=== PATIENT | female | born 1985 | race Caucasian/White ===

== ENCOUNTER 2018-11-29 11:43 | Emergency (ER) | payer OTHER ==
[~2018-11-29] VITALS: Ht 162.6 cm; Wt 84.4 kg
[2018-11-29] MEDS ORDERED: SYNTHROID300 MCG PO (12:19)
[2018-11-29] MEDS ORDERED: OBSTETRIX DHA1 EACH PO (12:19)
== END 2018-11-29 15:58 | disposition home or self-care (01) ==
LOC: ER 11:43
DX: O23.41 Unspecified infection of urinary tract in pregnancy, first trimester (principal); Z34.01 Encounter for supervision of normal first pregnancy, first trimester

== ENCOUNTER → 2018-12-17 | Outpatient (CLI) | payer OTHER ==
[~2018-12-17] MED LIST: OBSTETRIX DHA1 EACH PO; SYNTHROID300 MCG PO
== END | disposition home or self-care (01) ==
LOC: PRENATAL 13:21
DX: O99.89 Other specified diseases and conditions complicating pregnancy, childbirth and the puerperium (principal); O09.291 Supervision of pregnancy with other poor reproductive or obstetric history, first trimester; O34.211 Maternal care for low transverse scar from previous cesarean delivery

== ENCOUNTER → 2019-02-06 | Outpatient (CLI) | payer OTHER | END | disposition home or self-care (01) | LOC: PRENATAL 08:00 | DX: O24.312 Unspecified pre-existing diabetes mellitus in pregnancy, second trimester (principal); O34.211 Maternal care for low transverse scar from previous cesarean delivery; O99.89 Other specified diseases and conditions complicating pregnancy, childbirth and the puerperium; O28.1 Abnormal biochemical finding on antenatal screening of mother ==

== ENCOUNTER → 2019-04-09 | Outpatient (CLI) | payer OTHER | END | disposition home or self-care (01) | LOC: PRENATAL 14:00 | DX: O99.89 Other specified diseases and conditions complicating pregnancy, childbirth and the puerperium (principal); O24.410 Gestational diabetes mellitus in pregnancy, diet controlled; O34.211 Maternal care for low transverse scar from previous cesarean delivery; O99.283 Endocrine, nutritional and metabolic diseases complicating pregnancy, third trimester ==

== ENCOUNTER 2019-05-08 12:39 | Outpatient (CLI) | payer OTHER ==
[2019-05-08] MEDS ORDERED: NOVOLIN N100 UNIT/1 SUBCUTANEO ×2 (13:42→13:45)
[2019-05-08] MEDS ORDERED: NOVOLIN R100 UNIT/1 SUBCUTANEO ×2 (13:43→13:44)
== END 2019-05-09 12:07 | disposition home or self-care (01) ==
LOC: OBS/DEL 12:39
DX: O26.843 Uterine size-date discrepancy, third trimester (principal); O24.410 Gestational diabetes mellitus in pregnancy, diet controlled; O60.03 Preterm labor without delivery, third trimester; O34.211 Maternal care for low transverse scar from previous cesarean delivery

== ENCOUNTER 2019-05-25 11:15 | Inpatient (IN) | payer OTHER ==
[~2019-05-25] VITALS: Ht 162.6 cm; Wt 3.6 kg
[2019-06-08] MEDS ORDERED: NOVOLIN (10:34)
[2019-06-08] MEDS ORDERED: SYNTHROID300 MCG (11:21)
== END 2019-06-13 14:25 | disposition home or self-care (01) | DRG 788 ==
LOC: O/R 06-10 06:00 → OB/GYN 06-10 06:00 → SURG 06-10 11:15 → OB/GYN 06-10 11:15
PROVIDERS: ADMIT Obstetrics & Gynecology
PROC: 4A1HXFZ Monitoring of Products of Conception, Cardiac Rhythm, External Approach (ICD-10-PCS; 2019-06-10)
PROC: 3E033VJ Introduction of Other Hormone into Peripheral Vein, Percutaneous Approach (ICD-10-PCS; 2019-06-10)
PROC: 10D00Z1 Extraction of Products of Conception, Low, Open Approach (ICD-10-PCS; principal; 2019-06-10 11:15)
DX: O34.211 Maternal care for low transverse scar from previous cesarean delivery (principal); O24.429 Gestational diabetes mellitus in childbirth, unspecified control; Z3A.37 37 weeks gestation of pregnancy; Z37.0 Single live birth; Z30.2 Encounter for sterilization

== ENCOUNTER → 2019-05-25 | Outpatient (CLI) | payer OTHER ==
[~2019-05-25] MED LIST changes: +NOVOLIN N100 UNIT/1 SUBCUTANEO; +NOVOLIN R100 UNIT/1 SUBCUTANEO
== END | disposition home or self-care (01) ==
LOC: PRENATAL 09:09
DX: O36.8131 Decreased fetal movements, third trimester, fetus 1 (principal); O26.843 Uterine size-date discrepancy, third trimester; O24.414 Gestational diabetes mellitus in pregnancy, insulin controlled; O99.89 Other specified diseases and conditions complicating pregnancy, childbirth and the puerperium; Z3A.35 35 weeks gestation of pregnancy

== ENCOUNTER 2022-12-09 15:57 | Emergency (ER) | payer OTHER ==
[~2022-12-09] VITALS: Ht 160 cm; Wt 63.5 kg
[~2022-12-09 15:57] MED LIST changes: +NOVOLIN; +SYNTHROID300 MCG
== END 2022-12-09 22:49 | disposition home or self-care (01) ==
LOC: ER 15:57
DX: N83.291 Other ovarian cyst, right side (principal); Z91.040 Latex allergy status; Z91.048 Other nonmedicinal substance allergy status

== ENCOUNTER 2022-12-18 09:52 | Inpatient (IN) | payer OTHER ==
[~2022-12-18] VITALS: Ht 162.6 cm; Wt 77.1 kg
[~2022-12-18 09:52] MED LIST changes: -SYNTHROID300 MCG
[2022-12-19] MEDS ORDERED: VITAMIN D310 MCG/1 M PO (10:39)
[2022-12-26] MEDS ORDERED: LEVOTHYROXINE200 MCG (14:17)
[2022-12-26] MEDS ORDERED: LEVOTHYROXINE50 MCG (14:17)
== END 2022-12-29 10:55 | disposition home or self-care (01) | DRG 743 ==
LOC: SURG 12-26 09:15 → O/R 12-26 10:07 → OB/GYN 12-26 10:07 → SURG 12-26 12:00 → OB/GYN 12-26 17:52
PROVIDERS: Obstetrics & Gynecology; ADMIT Obstetrics & Gynecology; ATTEND Obstetrics & Gynecology
PROC: 0U590ZZ Destruction of Uterus, Open Approach (ICD-10-PCS; 2022-12-26)
PROC: 0UT00ZZ Resection of Right Ovary, Open Approach (ICD-10-PCS; principal; 2022-12-26 12:00)
DX: N83.292 Other ovarian cyst, left side (principal); Z20.822 Contact with and (suspected) exposure to COVID-19